=== PATIENT | female | born 1970 | race Caucasian/White ===

== ENCOUNTER 2023-09-22 06:53 | Inpatient (IN) | payer MEDICAID ==
[~2023-09-22] VITALS: Ht 172.7 cm; Wt 59.0 kg
[2023-09-22 07:27] LABS: BASOPHILS # (AUTO) 0.1 X10'3 (0-0.2); BASOPHILS % (AUTO) 1.5 % (0-1); EOSINOPHILS # (AUTO) 0.1 X10'3 (0-0.9); EOSINOPHILS % (AUTO) 3.6 % (0-6); HEMOGLOBIN 7.4 g/dl (12.0-16.0); LYMPHOCYTES # (AUTO) 1.3 X10'3 (1.1-4.8); LYMPHOCYTES % (AUTO) 31.8 % (21-51); MEAN CORPUSCULAR HEMOGLOBIN 24.2 PG (27.0-31.0); MEAN CORPUSCULAR HGB CONC 30.9 g/dL (33.0-36.5); MEAN CORPUSCULAR VOLUME 78.2 FL (78-98); MEAN PLATELET VOLUME 8.2 FL (7.4-10.4); MONOCYTES # (AUTO) 0.4 X10'3 (0-0.9); MONOCYTES % (AUTO) 9.4 % (2-12); NEUTROPHILS # (AUTO) 2.2 X10'3 (1.8-7.7); NEUTROPHILS % (AUTO) 53.7 % (42-75); PLATELET COUNT 253 X10'3 (140-440); RED BLOOD COUNT 3.06 X10'6 (4.20-5.60); RED CELL DISTRIBUTION WIDTH 19.9 % (11.5-14.5); WHITE BLOOD COUNT 4.1 X10'3 (4.5-11.0)
[2023-09-22 07:38] LABS: ALANINE AMINOTRANSFERASE 26 U/L (12-78); ALBUMIN 2.5 G/DL (3.4-5.0); ALBUMIN/GLOBULIN RATIO 0.5 (1.1-1.5); ALKALINE PHOSPHATASE 88 IU/L (46-116); ANION GAP 13 (8-16); ASPARTATE AMINO TRANSFERASE 66 U/L (10-37); BILIRUBIN,TOTAL 1.2 MG/DL (0.1-1.0); BLOOD UREA NITROGEN 6 MG/DL (7-18); BUN/CREATININE RATIO 7.9 (10.0-20.0); CALCIUM 7.7 MG/DL (8.5-10.1); CHLORIDE 106 MMOL/L (99-107); CREATININE 0.76 MG/DL (0.40-0.90); GLUCOSE 115 MG/DL (70-104); LIPASE 43 U/L (16-77); POTASSIUM 3.5 MMOL/L (3.5-5.1); SODIUM 143 MMOL/L (135-145); TOTAL CARBON DIOXIDE 23.6 MMOL/L (24-32); TOTAL PROTEIN 7.1 G/DL (6.4-8.2); eCRCL 81 ML/MIN; eGFR 80 ML/MIN
[2023-09-22 07:41] LABS: BILIRUBIN,URINE NEGATIVE (Neg); CLARITY,URINE SLIGHTLY CLOUDY (Clear); COLOR,URINE YELLOW (Yellow); GLUCOSE, URINE NEGATIVE (Neg); KETONES,URINE NEGATIVE (Neg); LEUKOCYTE ESTERASE ,URINE SMALL (Neg); NITRITES, URINE NEGATIVE (Neg); OCCULT BLOOD,URINE NEGATIVE (Neg); PH,URINE 6.5 (4.8-8.0); PROTEIN,URINE NEGATIVE (Neg); UROBILINOGEN,URINE 0.2 E.U/dL (0.2-1.0)
[2023-09-22 07:43] LABS: UA COLLECTION TYPE CLN CATCH MIDSTREAM
[2023-09-22 07:47] LABS: SQUAMOUS EPITHELIAL CELL,UR MANY /LPF (FEW)
[2023-09-22 07:49] LABS: BACTERIA,URINE 2+ /HPF (Neg); RBC,URINE 0-2 /HPF (0-2)
[2023-09-22 07:55] LABS: YEAST FEW /HPF (NEGATIVE)
[2023-09-22] MEDS ORDERED: NO HOME MEDS (08:21)
[2023-09-22 08:34] LABS: PLATELET ESTIMATE NORMAL
[2023-09-22 08:35] LABS: ANISOCYTOSIS 2+; HYPOCHROMASIA 1+; MICROCYTOSIS 1+
[2023-09-22] MEDS: CefTRIAXone/D5W-Rocephin 1gm 50 ML IV ONE (09:44)
[2023-09-22] MEDS: pantoprazole 40 MG vial IV SCH (11:05)
[2023-09-22 12:00] VITALS: BP 145/79; PULSE 119; RESP 16; TEMP 98.4; O2SAT 99
[2023-09-22 13:03] LABS: HEMATOCRIT 23.2 % (35.0-45.0); HEMOGLOBIN 7.1 g/dl (12.0-16.0); MEAN CORPUSCULAR HGB CONC 30.5 g/dL (33.0-36.5); MEAN CORPUSCULAR VOLUME 78.5 FL (78-98); MEAN PLATELET VOLUME 8.1 FL (7.4-10.4); PLATELET COUNT 225 X10'3 (140-440); RED BLOOD COUNT 2.96 X10'6 (4.20-5.60); RED CELL DISTRIBUTION WIDTH 19.7 % (11.5-14.5); WHITE BLOOD COUNT 3.7 X10'3 (4.5-11.0)
[2023-09-22] MEDS: hydrOXYzine 10 MG tablet PO PRN (14:01)
[2023-09-22] MEDS: octreotide inj. 500 MCG in normal saline 100ml IV soln 97.5 ML IV SCH (14:45)
[2023-09-22] MEDS: pantoprazole 40MG/NS 100ML BAG 100 ML IV SCH (14:55)
[2023-09-22 18:00] VITALS: BP 140/71; PULSE 111; RESP 14; TEMP 98.2; O2SAT 100
[2023-09-22 20:35] LABS: MAGNESIUM 1.1 MG/DL (1.5-2.4)
[2023-09-22 22:00] VITALS: BP 127/69; PULSE 114; RESP 16; TEMP 97.3; O2SAT 100
[2023-09-22] MEDS ORDERED: LORazepam 2 mg/ml vial IV PRN (22:40)
[2023-09-22] MEDS ORDERED: LORazepam 1 MG tablet PO PRN (22:40)
[2023-09-22] MEDS: normal saline 1000ml 1,000 ML IV SCH (22:53)
[2023-09-22 23:05] LABS: BASOPHILS % (AUTO) 0.7 % (0-1); EOSINOPHILS # (AUTO) 0.1 X10'3 (0-0.9); EOSINOPHILS % (AUTO) 1.3 % (0-6); LYMPHOCYTES # (AUTO) 0.2 X10'3 (1.1-4.8); LYMPHOCYTES % (AUTO) 3.9 % (21-51); MEAN CORPUSCULAR HEMOGLOBIN 23.6 PG (27.0-31.0); MEAN CORPUSCULAR HGB CONC 30.6 g/dL (33.0-36.5); MEAN CORPUSCULAR VOLUME 77.3 FL (78-98); MEAN PLATELET VOLUME 8.2 FL (7.4-10.4); MONOCYTES # (AUTO) 0.2 X10'3 (0-0.9); MONOCYTES % (AUTO) 5.5 % (2-12); NEUTROPHILS # (AUTO) 3.9 X10'3 (1.8-7.7); NEUTROPHILS % (AUTO) 88.6 % (42-75); PLATELET COUNT 177 X10'3 (140-440); RED BLOOD COUNT 2.72 X10'6 (4.20-5.60); RED CELL DISTRIBUTION WIDTH 19.8 % (11.5-14.5); WHITE BLOOD COUNT 4.4 X10'3 (4.5-11.0)
[2023-09-22 23:09] LABS: HEMATOCRIT 21.1 % (35.0-45.0); HEMOGLOBIN 6.4 g/dl (12.0-16.0)
[2023-09-23] VITALS (35 sets, daily range): BP systolic 84–145; BP diastolic 51–87; PULSE 90–149; RESP 15–21; TEMP 97.1–100.1; O2SAT 93–100
[2023-09-23 06:36] LABS: BASOPHILS % (AUTO) 0.9 % (0-1); HEMATOCRIT 27.4 % (35.0-45.0); HEMOGLOBIN 8.9 g/dl (12.0-16.0); LYMPHOCYTES # (AUTO) 0.1 X10'3 (1.1-4.8); LYMPHOCYTES % (AUTO) 3.2 % (21-51); MEAN CORPUSCULAR HEMOGLOBIN 25.1 PG (27.0-31.0); MEAN CORPUSCULAR HGB CONC 32.5 g/dL (33.0-36.5); MEAN PLATELET VOLUME 8.5 FL (7.4-10.4); MONOCYTES # (AUTO) 0.2 X10'3 (0-0.9); MONOCYTES % (AUTO) 4.6 % (2-12); NEUTROPHILS # (AUTO) 3.9 X10'3 (1.8-7.7); NEUTROPHILS % (AUTO) 90.3 % (42-75); PLATELET COUNT 161 X10'3 (140-440); RED BLOOD COUNT 3.56 X10'6 (4.20-5.60); RED CELL DISTRIBUTION WIDTH 18.5 % (11.5-14.5); WHITE BLOOD COUNT 4.3 X10'3 (4.5-11.0)
[2023-09-23 06:44] LABS: INR 1.4 INR; PROTHROMBIN TIME 14.5 SECONDS (9.0-12.0)
[2023-09-23 06:55] LABS: ALANINE AMINOTRANSFERASE 23 U/L (12-78); ALBUMIN 2.3 G/DL (3.4-5.0); ALBUMIN/GLOBULIN RATIO 0.5 (1.1-1.5); ALKALINE PHOSPHATASE 77 IU/L (46-116); AMYLASE 37 U/L (25-115); ANION GAP 11 (8-16); ASPARTATE AMINO TRANSFERASE 62 U/L (10-37); BILIRUBIN,TOTAL 2.5 MG/DL (0.1-1.0); BLOOD UREA NITROGEN 5 MG/DL (7-18); BUN/CREATININE RATIO 7.4 (10.0-20.0); CALCIUM 7.5 MG/DL (8.5-10.1); CHLORIDE 104 MMOL/L (99-107); CREATININE 0.68 MG/DL (0.40-0.90); GLUCOSE 131 MG/DL (70-104); LIPASE 30 U/L (16-77); PHOSPHORUS 3.1 MG/DL (2.3-4.5); POTASSIUM 3.4 MMOL/L (3.5-5.1); SODIUM 136 MMOL/L (135-145); TOTAL CARBON DIOXIDE 21.4 MMOL/L (24-32); TOTAL PROTEIN 6.8 G/DL (6.4-8.2); eCRCL 90 ML/MIN; eGFR > 90 ML/MIN
[2023-09-23] MEDS ORDERED: magnesium Cl slow-release 64mg tablet PO PRN (06:55)
[2023-09-23] MEDS ORDERED: potassium Cl 40MEQ/1/2NS 520ml 520 ML IV PRN (06:55)
[2023-09-23] MEDS ORDERED: potassium Cl 20 mEq SR tablet PO PRN (06:55)
[2023-09-23 07:01] LABS: MAGNESIUM 0.9 MG/DL (1.5-2.4)
[2023-09-23] MEDS: folic acid 1mg tablet PO SCH (07:34)
[2023-09-23] MEDS: potassium Cl 20 mEq SR tablet PO PRN (07:34)
[2023-09-23] MEDS: multivitamins, therapeutics tablet PO SCH (07:34)
[2023-09-23] MEDS: thiamine 100mg tablet PO SCH (07:34)
[2023-09-23] MEDS: magnesium sulf-water 4G/100mL 100 ML IV PRN (07:41)
[2023-09-23] MEDS: magnesium sulf-water 2g/50mL 50 ML IV PRN (07:42)
[2023-09-23] MEDS: K and/or MAG REPLACEMENT MC SCH (08:00)
[2023-09-23] MEDS: chloestyramine/aspartame 4gm packet PO SCH (11:00)
[2023-09-23] MEDS ORDERED: fentaNYL/PF 50MCG/1 ML 2ML syringe ONE (12:23)
[2023-09-23] MEDS ORDERED: LIDOcaine 2% Viscous 15ml cup ONE (12:24)
[2023-09-23] MEDS ORDERED: diphenhydrAMINE 50 mg/ml inj ONE ×2 (12:24→12:57)
[2023-09-23] MEDS ORDERED: MIDAZolam 1 MG/ML 5ML VIAL ONE (12:24)
[2023-09-23] MEDS ORDERED: epiNEPHrine 0.1mg/ml 10ml syringe ONE ×2 (12:40→13:02)
[2023-09-23 13:10] LABS: THYROID STIMULATING HORMONE 0.22 ulU/ml (0.34-4.50)
[2023-09-23] MEDS ORDERED: calcium gluconate inj. 2 GM in normal saline 100ml IV soln 100 ML IV ONE (13:30)
[2023-09-23] MEDS: octreotide inj. 500 MCG in normal saline 100ml IV soln 97.5 ML IV SCH (13:30)
[2023-09-23] MEDS: ringers solution, lacted 1,000 ML IV SCH (13:45)
[2023-09-23] MEDS: CALCIUM GLUC 1gm/50ml NACL,iso 50 ML IV ONE ×2 (15:01→15:30)
[2023-09-23] MEDS ORDERED: MULT-1085 PO (15:58)
[2023-09-23] MEDS ORDERED: morphine 2 MG/ML inj. syringe IV PRN (17:35)
[2023-09-23] MEDS: acetaminophen 1,000mg/100ml IV 100 ML IV PRN (17:38)
[2023-09-23 17:58] LABS: MEAN CORPUSCULAR HEMOGLOBIN 27.3 PG (27.0-31.0); PLATELET COUNT 138 X10'3 (140-440); RED CELL DISTRIBUTION WIDTH 18.1 % (11.5-14.5); WHITE BLOOD COUNT 11.7 X10'3 (4.5-11.0)
[2023-09-23 18:00] LABS: BASOPHILS % (AUTO) 0.3 % (0-1); EOSINOPHILS % (AUTO) 0.3 % (0-6); HEMATOCRIT 32.5 % (35.0-45.0); HEMOGLOBIN 10.9 g/dl (12.0-16.0); LYMPHOCYTES # (AUTO) 0.2 X10'3 (1.1-4.8); LYMPHOCYTES % (AUTO) 2.1 % (21-51); MEAN CORPUSCULAR HGB CONC 33.3 g/dL (33.0-36.5); MEAN CORPUSCULAR VOLUME 81.8 FL (78-98); MEAN PLATELET VOLUME 8.1 FL (7.4-10.4); MONOCYTES # (AUTO) 0.6 X10'3 (0-0.9); MONOCYTES % (AUTO) 5.4 % (2-12); NEUTROPHILS # (AUTO) 10.7 X10'3 (1.8-7.7); NEUTROPHILS % (AUTO) 91.9 % (42-75); RED BLOOD COUNT 3.98 X10'6 (4.20-5.60)
[2023-09-23 22:55] LABS: BASOPHILS # (AUTO) 0.1 X10'3 (0-0.2); BASOPHILS % (AUTO) 0.9 % (0-1); EOSINOPHILS # (AUTO) 0.1 X10'3 (0-0.9); EOSINOPHILS % (AUTO) 0.9 % (0-6); HEMATOCRIT 29.1 % (35.0-45.0); HEMOGLOBIN 9.8 g/dl (12.0-16.0); LYMPHOCYTES # (AUTO) 0.3 X10'3 (1.1-4.8); LYMPHOCYTES % (AUTO) 3.6 % (21-51); MEAN CORPUSCULAR HEMOGLOBIN 27.3 PG (27.0-31.0); MEAN CORPUSCULAR HGB CONC 33.5 g/dL (33.0-36.5); MEAN CORPUSCULAR VOLUME 81.6 FL (78-98); MONOCYTES # (AUTO) 0.4 X10'3 (0-0.9); MONOCYTES % (AUTO) 5.4 % (2-12); NEUTROPHILS % (AUTO) 89.2 % (42-75); PLATELET COUNT 135 X10'3 (140-440); RED BLOOD COUNT 3.57 X10'6 (4.20-5.60); RED CELL DISTRIBUTION WIDTH 17.7 % (11.5-14.5); WHITE BLOOD COUNT 7.8 X10'3 (4.5-11.0)
[2023-09-23 23:07] LABS: ALANINE AMINOTRANSFERASE 18 U/L (12-78); ALBUMIN/GLOBULIN RATIO 0.6 (1.1-1.5); ALKALINE PHOSPHATASE 59 IU/L (46-116); ANION GAP 7 (8-16); ASPARTATE AMINO TRANSFERASE 39 U/L (10-37); BILIRUBIN,TOTAL 4.1 MG/DL (0.1-1.0); BLOOD UREA NITROGEN 8 MG/DL (7-18); BUN/CREATININE RATIO 12.3 (10.0-20.0); CALCIUM 7.7 MG/DL (8.5-10.1); CHLORIDE 107 MMOL/L (99-107); CREATININE 0.65 MG/DL (0.40-0.90); GLUCOSE 104 MG/DL (70-104); MAGNESIUM 1.9 MG/DL (1.5-2.4); PHOSPHORUS 2.9 MG/DL (2.3-4.5); POTASSIUM 3.5 MMOL/L (3.5-5.1); SODIUM 138 MMOL/L (135-145); TOTAL CARBON DIOXIDE 23.8 MMOL/L (24-32); TOTAL PROTEIN 5.5 G/DL (6.4-8.2); eCRCL 94 ML/MIN; eGFR > 90 ML/MIN
[2023-09-24] VITALS: BP 154/82; PULSE 89; RESP 12; O2SAT 95
[2023-09-24 01:00] VITALS: BP 120/74; PULSE 88; RESP 15; O2SAT 94
[2023-09-24 02:00] VITALS: BP 142/79; PULSE 83; RESP 13; O2SAT 96
[2023-09-25 18:13] LABS: ANTINUCLEAR ANTIBODIES Negative (Negative)
[2023-09-26 06:56] LABS: HBSAG SCREEN Negative (Negative); HEP B CORE AB, IGM Negative (Negative); HEP B CORE AB, TOT Negative (Negative)
[2023-09-26] MEDS ORDERED: thiamine 100mg tablet PO SCH (08:00)
[2023-09-26] MEDS ORDERED: PANT-47 PO (08:29)
[2023-09-26 12:23] LABS: MITOCHONDRAIL (M2) ANTIBODY <20.0 Units (0.0-20.0)
[2023-09-27] MEDS ORDERED: folic acid 1mg tablet PO SCH (08:00)
== END 2023-09-24 02:20 | disposition critical access hospital (66) | DRG 241 ==
LOC: ER 06:55 → ED HOLD 10:02 → UNDOADMIN 10:17 → ED HOLD 10:17 → EDBEDREQ 10:50 → ED HOLD 11:45 → ORTHO 4S 11:45 → ICU 2S 09-23 13:53
PROVIDERS: ADMIT Internal Medicine; ATTEND Internal Medicine
PROC: 0W3P8ZZ Control Bleeding in Gastrointestinal Tract, Via Natural or Artificial Opening Endoscopic (ICD-10-PCS; principal; 2023-09-23)
PROC: 3E0G8GC Introduction of Other Therapeutic Substance into Upper GI, Via Natural or Artificial Opening Endoscopic (ICD-10-PCS; 2023-09-23)
PROC: 30233K1 Transfusion of Nonautologous Frozen Plasma into Peripheral Vein, Percutaneous Approach (ICD-10-PCS; 2023-09-23)
PROC: 30233N1 Transfusion of Nonautologous Red Blood Cells into Peripheral Vein, Percutaneous Approach (ICD-10-PCS; 2023-09-23)
PROC: 30233R1 Transfusion of Nonautologous Platelets into Peripheral Vein, Percutaneous Approach (ICD-10-PCS; 2023-09-23)
PROC: 30233M1 Transfusion of Nonautologous Plasma Cryoprecipitate into Peripheral Vein, Percutaneous Approach (ICD-10-PCS; 2023-09-23)
DX: K29.71 Gastritis, unspecified, with bleeding (principal); K70.10 Alcoholic hepatitis without ascites; K76.0 Fatty (change of) liver, not elsewhere classified; F10.20 Alcohol dependence, uncomplicated; D50.8 Other iron deficiency anemias; E87.6 Hypokalemia; G62.9 Polyneuropathy, unspecified; Z20.822 Contact with and (suspected) exposure to COVID-19; L29.8 Other pruritus; N39.0 Urinary tract infection, site not specified; Z88.8 Allergy status to other drugs, medicaments and biological substances
CPT/HCPCS: 36415; 36430; 43255; 76700; 80053; 81001; 82150; 83690; 83735; 84100; 84443; 85008; 85025; 85027; 85610; 86038; 86255; 86704; 86705; 86885; 86900; 86901; 86920; 87081; 87340; 87811; 99152; 99153; 99285; A4620; C1758; G0378; J0131; J0171; J0610; J0696; J1200; J2250; J2354; J3010; J3475; J7030; J7040; J7120; P9012; P9016; P9035; P9059

== ENCOUNTER 2024-08-02 22:55 | Inpatient (IN) | payer MEDICAID ==
[~2024-08-02] VITALS: Ht 172.7 cm; Wt 57.5 kg
[~2024-08-02 22:55] MED LIST: MULT-1085 PO; PANT-47 PO
--- NOTE | 2024-08-02 23:08 | Physician Documentation ---
History of Present Illness ~ Chief Complaint: See Chief Complaint Stated Complaint: GI BLEED Time Seen by MD: 22:57 HPI Patient presents to the emergency room for evaluation of GI bleed. She is transferred from [facility]. Patient has history of cirrhosis along with variceal bleeds with banding two weeks ago that also paracentesis performed earlier this morning. She endorses black stools and hematemesis. She was transfused 2 units of packed red blood cells he will receive crystalloid fluids at sending facility. Protonix was also initiated along with octreotide. Patient was initially hypotensive however she is respond to therapy in his now normotensive. Medication Reconciliation Allergies: Coded Allergies: gabapentin (Verified Allergy, Unknown, 09/22/23) Scheduled Calcium Carbonate* (Oscal*), 1 TAB PO BID, (Reported) Folic Acid* (Folic Acid*), 2.5 TAB PO DAILY, (Reported) Levothyroxine Sodium (Synthroid), 1 TAB PO DAILY, (Reported) Pantoprazole Sodium (PROTONIX tablet), 40 MG PO BID Sertraline HCl (Sertraline HCl), 1 TAB PO DAILY, (Reported) Scheduled PRN Docusate Sodium (Docusate Sodium), 1 CAP PO Q12H PRN for constipation, (Reported) Oxycodone Hcl IR* (Oxycodone IR*), 1 TAB PO Q6H PRN for moderate to severe pain, (Reported) Sennosides (Senna), 2 TAB PO HS PRN for constipation, (Reported) Discontinued Medications Multivitamin (Multi Vitamin Daily), 1 TAB PO DAILY, (Reported) Discontinued Reason: patient no longer taking Past Medical History Patient History: Cirrhosis of liver MOTHER, , Age: 72 GRANDFATHER OR GRANDMOTHER Diabetes mellitus (DM) MOTHER, , Age: 72 FH: OR (myocardial infarction) MOTHER, , Age: 72 FH: alcoholism GRANDFATHER OR GRANDMOTHER Alcohol Use: Abuse Drug Use: none Lives with: Spouse Lives In: Home Review of Systems ROS All review of systems negative except as per HPI Physical Exam Vital Signs: Temperature: 98.3, Source: Oral, Heart Rate: 110, Respiratory Rate: 18, BP: 112/61, Pulse Oximetry: 97, Weight: 57.550 Oxygen Flow Rate: 0 Physical Exam General: Patient is awake, alert, oriented x4 in no acute distress Head: Normocephalic and atraumatic. Eyes: Conjunctival normal. EOMI. PERRL. ENT: Mucous membranes moist. Neck: Supple, trachea is midline. Chest: Clear to auscultation bilaterally without rales, rhonchi, or wheezes. There is no accessory muscle use or retractions. Cardiac: Tachycardic and regular without murmurs, gallops, or rubs. Abd: Soft, nondistended, mild epigastric tenderness to palpation Extremities: Normal strength. Normal range of motion. No deformities or edema. Left wrist and splint Progress Results/Orders Results/Orders Orders - SANCHEZ ZAMUDIO MD Electrocardiogram (08/02/24 23:03) Nothing By Mouth (08/03/24 Breakfast) Monitor (08/02/24 23:03) Saline Lock (08/02/24 23:03) Iv Ppi (08/02/24 23:03) Pantoprazole 40mg/Ns 100ml Bag (Protonix (08/02/24 23:10) Page Hospitalist (08/02/24 23:36) Fill Out Med Reconciliation (08/02/24 23:36) Completed Orders - SANCHEZ ZAMUDIO MD Cbc/Diff (08/02/24 23:03) BMP (08/02/24 23:03) PTT (08/02/24 23:03) Pt Inr (08/02/24 23:03) Type And Screen (08/02/24 23:03) Normal Saline 100ml... W/Octreotide Inj. (08/02/24 23:05) Octreotide Inj. (Sandostatin Inj.) (08/02/24 23:50) Pantoprazole 40mg/Ns 100ml Bag (Protonix (08/02/24 23:55) Medications Received in ER Medications (Trade) Dose Ordered Sig/Mae Route PRN Reason Start Time Stop Time Status Last Admin Dose Admin Octreotide Acetate 500 mcg/ Sodium Chloride 100 ml @ 10 mls/hr Q10H IV 08/02/24 23:05 08/03/24 00:34 DC 08/03/24 00:26 10 MLS/HR Pantoprazole Sodium 100 ml @ 20 mls/hr Q5H IV 08/02/24 23:10 08/03/24 00:26 20 MLS/HR Sodium Chloride 1,000 ml @ 100 mls/hr Q10H IV 08/03/24 00:30 08/03/24 00:30 100 MLS/HR (Slow-Mag tablet) 128 mg BID PRN PO Mag 1.4 or less & can take PO 08/03/24 00:30 08/06/24 00:29 08/03/24 02:12 128 MG Vital Signs 08/02/24 08/02/24 08/02/24 22:56 23:02 23:04 Temp 98.3 98.3 Pulse 112 110 Resp 18 18 18 B/P (MAP) 112/61 112/61 (78) Pulse Ox 100 97 O2 Flow Rate 0 0 Laboratory Tests Test 08/02/24 23:18 White Blood Count 10.4 Red Blood Count 2.89 L Hemoglobin 8.7 L Hematocrit 25.7 L Mean Corpuscular Volume 88.9 Mean Corpuscular Hemoglobin 30.2 Mean Corpuscular Hemoglobin Concent 33.9 Red Cell Distribution Width 14.8 H Platelet Count 265 Mean Platelet Volume 9.0 Neutrophils (%) (Auto) 75.0 Lymphocytes (%) (Auto) 12.4 L Monocytes (%) (Auto) 11.6 Eosinophils (%) (Auto) 0.1 Basophils (%) (Auto) 0.9 Neutrophils # (Auto) 7.8 H Lymphocytes # (Auto) 1.3 Monocytes # (Auto) 1.2 H Eosinophils # (Auto) 0.0 Basophils # (Auto) 0.1 CBC Comment Prothrombin Time 14.6 H INR International Normalized Ratio 1.5 Activated Partial Thromboplast Time 29 Coagulation Comments Sodium Level 134 L Potassium Level 4.2 Chloride Level 96 L Carbon Dioxide Level 28.6 Anion Gap 9 Blood Urea Nitrogen 44 H Creatinine 1.07 H Estimated GFR/1.73 m2 54 BUN/Creatinine Ratio 41.1 H Glucose Level 114 H Calcium Level 8.3 L Albumin 2.6 L Chemistry Comments EKG/XRAY/CT/US/VASC/MRI EKG : Additional Comment EKG interpreted by myself shows time of 05/12/2057, rate 107, sinus tachycardia, normal axis, no ST changes Medical Decision Making Findings Patient presents to the emergency room with GI bleed as per HPI as a transfer from [facility] We will continue octreotide along with Protonix drip. No active bleeding in our emergency room. Patient did require transfusion. Diff Dx GI Bleed:Consideration: Include: Bleeding diathesis, Blood loss anemia, Gastroenteritis, Pennie-Jennings syndrome, PUD Departure Admitted to Inpatient Unit: yes, to hospitalist Impression: Primary Impression: Upper GI bleed Condition: Guarded Referrals: NO PRIMARY CARE PROVIDER (PCP) Critical Care Note Total Time (mins): 45 Critical Care Note The very real possibility of a deterioration of this patient's condition required the highest level of my preparedness for sudden, emergent intervention. I provided critical care services, which included medication orders, frequent reevaluations of the patient's condition and response to treatment, ordering and reviewing test results, and discussing the case with various consultants. Excludes time spent performing separately billable procedures. The critical care time associated with the care of the patient was 45 minutes not counting procedures Signature Scribe Signature: No scribe Attestation: The note accurately reflects work and decisions made by me.Sanchez Zamudio MD 08/03/24 02:37 SANCHEZ ZAMUDIO MD August 02, 2024 23:08
[2024-08-02 23:27] LABS: BASOPHILS # (AUTO) 0.1 X10'3 (0-0.2); EOSINOPHILS % (AUTO) 0.1 % (0-6); HEMOGLOBIN 8.7 g/dl (12.0-16.0); LYMPHOCYTES # (AUTO) 1.3 X10'3 (1.1-4.8); LYMPHOCYTES % (AUTO) 12.4 % (21-51)
[2024-08-02 23:28] LABS: BASOPHILS % (AUTO) 0.9 % (0-1); HEMATOCRIT 25.7 % (35.0-45.0); MEAN CORPUSCULAR HEMOGLOBIN 30.2 PG (27.0-31.0); MEAN CORPUSCULAR HGB CONC 33.9 g/dL (33.0-36.5); MEAN CORPUSCULAR VOLUME 88.9 FL (78-98); MONOCYTES # (AUTO) 1.2 X10'3 (0-0.9); MONOCYTES % (AUTO) 11.6 % (2-12); NEUTROPHILS # (AUTO) 7.8 X10'3 (1.8-7.7); PLATELET COUNT 265 X10'3 (140-440); RED BLOOD COUNT 2.89 X10'6 (4.20-5.60); RED CELL DISTRIBUTION WIDTH 14.8 % (11.5-14.5); WHITE BLOOD COUNT 10.4 X10'3 (4.5-11.0)
[2024-08-02 23:36] LABS: ALBUMIN 2.6 G/DL (3.4-5.0); ANION GAP 9 (8-16); BLOOD UREA NITROGEN 44 MG/DL (7-18); BUN/CREATININE RATIO 41.1 (10.0-20.0); CALCIUM 8.3 MG/DL (8.5-10.1); CHLORIDE 96 MMOL/L (99-107); CREATININE 1.07 MG/DL (0.40-0.90); GLUCOSE 114 MG/DL (70-104); POTASSIUM 4.2 MMOL/L (3.5-5.1); SODIUM 134 MMOL/L (135-145); TOTAL CARBON DIOXIDE 28.6 MMOL/L (24-32); eCRCL 55 ML/MIN; eGFR 54 ML/MIN
[2024-08-02 23:39] LABS: APTT 29 SECONDS (22-32); INR 1.5 INR; PROTHROMBIN TIME 14.6 SECONDS (9.0-12.0)
[2024-08-03] VITALS (8 sets, daily range): BP systolic 109–122; BP diastolic 47–58; PULSE 98–116; RESP 14–18; TEMP 97.1–97.8; O2SAT 95–100
[2024-08-03] MEDS: octreotide 200mcg/ml 5ml vial ONE (00:25)
[2024-08-03] MEDS: pantoprazole 40MG/NS 100ML BAG 100 ML IV ONE ×2 (00:25→05:19)
[2024-08-03] MEDS: pantoprazole 40MG/NS 100ML BAG 100 ML IV SCH (00:26)
[2024-08-03] MEDS: octreotide inj. 500 MCG in normal saline 100ml IV soln 97.5 ML IV SCH ×2 (00:26→01:19)
[2024-08-03] MEDS: normal saline 1000ml 1,000 ML IV SCH (00:30)
[2024-08-03] MEDS ORDERED: potassium Cl 20 mEq SR tablet PO PRN (00:30)
[2024-08-03] MEDS ORDERED: ondansetron/PF 4mg/2ml inj IV PRN (00:30)
[2024-08-03] MEDS ORDERED: magnesium sulf-water 2g/50mL 50 ML IV PRN (00:30)
[2024-08-03] MEDS ORDERED: magnesium sulf-water 4G/100mL 100 ML IV PRN (00:30)
[2024-08-03] MEDS ORDERED: potassium Cl 40MEQ/1/2NS 520ml 520 ML IV PRN (00:30)
--- NOTE | 2024-08-03 01:23 | HISTORY AND PHYSICAL-Residence ---
History & Physical Providers to CC Resident Creating Document: MEÑO BELTRAN RES ~ History of Present Illness Reason for Admit\Complaint: Upper GI bleed History of Present Illness This 54-year-old female with a known liver cirrhosis, s/p esophageal variceal banding about two weeks back, previous upper GI bleed was transferred from [facility] for higher level of care for the management of upper GI bleed. She stated that she was completely fine till yesterday. Got a paracentesis done at [facility] this morning and she gets one paracentesis done every 10 days. She usually walks by herself but sometimes needs wheelchair or walker due to weakness in her knees. She started throwing up blood this morning and then was about to stand up from the wheelchair. [place] dizzy and fell to the ground. States that she lost consciousness and that her called the EMS. She was taken to [facility], had hemoglobin of 5.2 and received 2 unit packed RBC and also crystalloid fluids. Per ER note, she also received Protonix drip and octreotide drip. A discharge summary or H&P is not available -recommend to requested records from [facility]. She also was admitted in September last year for similar complaints due to massive bleed from a visible vessel at the lesser curvature of the stomach requiring clipping and epinephrine injection. Had drop in blood pressure and was transferred to ICU to resume multiple blood products. She also was diagnosed to have a peptic ulcer disease at the GE junction. She was also transferred to [facility] where a CT with and without oral contrast was performed and no other procedures were done. She denies drinking alcohol recently and that she quit in Mar this year. States that she took aspirin 81 mg once about three days back for left wrist pain. Denies taking any Tylenol, NSAIDs. States that she developed left upper arm wound from fall this morning and left lower extremity wound from fall at [facility] about 1-2 weeks back. Allergies: Coded Allergies: gabapentin (Verified Allergy, Unknown, 09/22/23) Home Medications Home Medications Active PROTONIX tablet (Pantoprazole Sodium) 40 Mg Tablet.dr 40 Mg PO BID Reported Multi Vitamin Daily (Multivitamin) 1 Each Tablet 1 Tab PO DAILY 30 Days Past Medical History Past Medical History Liver cirrhosis, alcohol use disorder, esophageal varices-s/p banding Past Surgical History Surgical History Comment Foot surgery many years back, esophageal variceal banding, paracentesis Family History Family History: Cirrhosis of liver MOTHER, , Age: 72 GRANDFATHER OR GRANDMOTHER Diabetes mellitus (DM) MOTHER, , Age: 72 FH: [place] (myocardial infarction) MOTHER, , Age: 72 FH: alcoholism GRANDFATHER OR GRANDMOTHER Past Social History Social History Comment States that she quit drinking in Mar this year but drank ' a lot' before that. Denies smoking tobacco or abusing any other recreational drugs Smoking: Non-Smoker Alcohol Use: Abuse Drug Use: None Lives with: Spouse Lives In: Home ROS ROS Constitutional: No fever, chills, dizziness, weakness, weight gain or loss Eyes: No pain, erythema, discharge, blurring of vision ENT: No sore throat, epistaxis, tinnitus Cardiovascular: No chest pain, chest pressure, chest discomfort, palpitations, syncope, lower extremity edema, paroxysmal nocturnal dyspnea Respiratory: No shortness of breath, cough, hemoptysis Gastrointestinal: Hematemesis and black tarry stools present. Normal appetite. Genitourinary: No frequency, urgency, nocturia, hematuria or dysuria Musculoskeletal: No arthralgias or myalgias Integumentary: No change in skin, hair, nails. No swelling, bruising, abrasions Neurologic: No headache, neck pain, numbness or tingling of the extremities, weakness Psychiatric: No delusions, depression, loss of interest in normal activity or change in sleep pattern, hallucinations, suicidal ideations Endocrine: No fatigue, weakness, polydipsia, polyuria, change in appetite, heat or cold intolerance, sweating, dry skin Hematological: No bleeding, petechiae, bruising Allergies: No asthma or urticaria Exam Vitals: Vital Signs Date Time Temp Pulse Resp B/P (MAP) Pulse Ox O2 Delivery O2 Flow Rate FiO2 08/02/24 23:04 18 08/02/24 23:02 98.3 110 97 0 General: Alert and oriented x4 HEENT: Normocephalic and atraumatic. Pupils equal round reactive to light and accommodation. Extraocular movements intact. Oral and nasal mucosa moist Neck: Trachea is in midline. No masses or JVD Chest: Bilateral normal breath sounds. No crackles, rhonchi or wheezes Cardiovascular: Regular rate and rhythm. S1-S2 normal. No rubs or murmurs Abdomen: Soft, mildly distended and nontender. Normoactive bowel sounds Extremities: No cyanosis, clubbing or edema. Superficial ulcer on left arm - about 5 cm - no subcutaneous tissue exposure. Superficial ulcer on left leg about 10 cm long. Excoriations on right leg Central Nervous System: Bilateral lower extremity motor power 4/5. Bilateral upper extremity below power 5/5. No significant sensory abnormalities. CN II to XII intact Skin: Superficial ulcer on left arm - about 5 cm - no subcutaneous tissue exposure. Superficial ulcer on left leg about 10 cm long. Excoriations on right leg Diagnostic Data Last Recorded Lab Results: 08/02/24 2318 08/03/24 0128 Diagnostic Data: Laboratory Tests Test 08/02/24 23:18 Prothrombin Time 14.6 SECONDS (9.0-12.0) H INR International Normalized Ratio 1.5 INR Activated Partial Thromboplast Time 29 SECONDS (22-32) Coagulation Comments Advance Care Planning Advanced Care plannin - 30 Minutes Additional Plan Upper GI bleed - tachycardic Possibly from esophageal varices or peptic ulcer disease Did not come with a Protonix drip and octreotide drip but received it the outside hospital Had one episode of bloody vomitus before transfer Started on Protonix drip and octreotide drip Started Rocephin 2 g IV daily Started normal saline at 100 cc/hour Took aspirin about three days back Per previous EGDs, peptic ulcerative gastroesophageal junction S/p variceal banding about two weeks back Recommend GI consult in a.m. HGB 8.7 and hematocrit 25.7. Check H&H q.4h Elevated INR secondary to liver cirrhosis Elevated BUN likely due to GI bleed Abdomen/pelvis CT with contrast done at outside hospital: No active GI bleeding identified. Cirrhosis with splenomegaly and small to moderate ascites Hyponatremia and hypochloremia Likely due to blood loss from hematemesis Continue IV fluids Decompensated Liver cirrhosis Paracentesis done on 08/02/2024 [facility] Hold Lasix or spironolactone for now due to ongoing GI bleed Check ammonia level Elevated INR, elevated bilirubin, hypoalbuminemia Abdomen/pelvis CT with contrast done at outside hospital: No active GI bleeding identified. Cirrhosis with splenomegaly and small to moderate ascites Dizziness and fall Likely due to blood loss from hematemesis Head CT did not show any acute intracranial abnormalities Corrected calcium with albumin: Within normal limits Superficial ulcerative wounds on left upper extremity and lower extremity Secondary to trauma Requires wound care. Wound care consult requested DVT prophylaxis: SCDs GI prophylaxis: Protonix drip. NPO after midnight Meño Beltran MD Internal Medicine Resident, PGY 2 Date of Service: August 03, 2024 Billing Provider: BRIANNA COMER MD Addendum agree with assessment and plan spent 35 minutes MEÑO BELTRAN RES August 03, 2024 01:23 BRIANNA COMER MD August 03, 2024 03:21
[2024-08-03 01:24] LABS: BILIRUBIN,URINE NEGATIVE (Neg); CLARITY,URINE CLEAR (Clear); COLOR,URINE YELLOW (Yellow); GLUCOSE, URINE NEGATIVE (Neg); KETONES,URINE TRACE mg/dl (Neg); LEUKOCYTE ESTERASE ,URINE NEGATIVE (Neg); NITRITES, URINE NEGATIVE (Neg); OCCULT BLOOD,URINE TRACE-INTACT (Neg); PH,URINE 5.5 (4.8-8.0); PROTEIN,URINE NEGATIVE (Neg); UROBILINOGEN,URINE 0.2 E.U/dL (0.2-1.0)
[2024-08-03 01:25] LABS: UA COLLECTION TYPE CLN CATCH MIDSTREAM
[2024-08-03] MEDS ORDERED: SERT-153 PO (01:25)
[2024-08-03] MEDS ORDERED: OXYC-658 PO (01:25)
[2024-08-03] MEDS ORDERED: DOCU100C38 PO (01:25)
[2024-08-03] MEDS ORDERED: OSC500T PO (01:25)
[2024-08-03] MEDS ORDERED: FOLI0.4T6 PO (01:25)
[2024-08-03] MEDS ORDERED: SENN-360 PO (01:25)
[2024-08-03] MEDS ORDERED: LEVO100T PO (01:25)
[2024-08-03 01:32] LABS: BACTERIA,URINE 1+ /HPF (Neg); SQUAMOUS EPITHELIAL CELL,UR FEW /LPF (FEW); WBC,URINE 0-4 /HPF (0-4)
--- NOTE | 2024-08-03 01:42 | RADIOLOGY REPORT ---
Clinical History fall and loss of consciousness, elevated INR Comparison None Technique: All CT scans at this medical facility are performed using dose modulation techniques as appropriate t o a performed exam including the following: Automated exposure control was utilized; adjustment of th e mA and/or kV according to patient size; and use of iterative reconstruction technique. All CT studies are reported to the Dose Index Registry of the [employer]. Without Contrast Radiation Dose: CTDI (mGy): 52.02; DLP (mGy-cm): 929.79 MANINDER CAMERON, [id number] Findings: No focal parenchymal lesion.No mass-effect. No shift of midline structures. The ventricular system a nd extracerebral CSF spaces are unremarkable for patient's age. No acute orbital abnormality. The imaged part of the paranasal sinuses is unremarkable.The imaged par t of the mastoid air cells is unremarkable. The calvarium is unremarkable. The soft tissues are unremarkable. Impression: No evidence of acute intracranial abnormality. This report was electronically signed by Gayathri Bravo MD on 08/03/2024 1:38:59 AM.
[2024-08-03 01:43] LABS: HEMOGLOBIN A1C 5.3 % (4.5-6.2)
[2024-08-03 01:47] LABS: ALANINE AMINOTRANSFERASE 20 U/L (12-78); ALBUMIN 2.6 G/DL (3.4-5.0); ALKALINE PHOSPHATASE 49 IU/L (46-116); ANION GAP 8 (8-16); ASPARTATE AMINO TRANSFERASE 29 U/L (10-37); BILIRUBIN,TOTAL 1.7 MG/DL (0.1-1.0); BLOOD UREA NITROGEN 47 MG/DL (7-18); BUN/CREATININE RATIO 43.5 (10.0-20.0); CALCIUM 8.3 MG/DL (8.5-10.1); CHLORIDE 96 MMOL/L (99-107); CREATININE 1.08 MG/DL (0.40-0.90); GLUCOSE 120 MG/DL (70-104); MAGNESIUM 1.3 MG/DL (1.5-2.4); PHOSPHORUS 4.3 MG/DL (2.3-4.5); POTASSIUM 3.7 MMOL/L (3.5-5.1); SODIUM 134 MMOL/L (135-145); TOTAL CARBON DIOXIDE 29.6 MMOL/L (24-32); TOTAL PROTEIN 5.1 G/DL (6.4-8.2); eCRCL 55 ML/MIN; eGFR 53 ML/MIN
[2024-08-03] MEDS: CefTRIAXone 2gm/D5W 50ml BAG 50 ML IV SCH (01:49)
[2024-08-03] MEDS: magnesium Cl slow-release 64mg tablet PO PRN (02:12)
--- NOTE | 2024-08-03 05:27 | ELECTROCARDIOGRAPH REPORT ---
[facility] Test Date: 2024-08-02 Test Time: 22:58:23 Pat Name: MANINDER CAMERON Department: EMERGENCY ROOM Room: [place] [address] Gender: F Filler Operator: GABRIELA : 1970 Requested By: SELENE SAENZ Order Number: [id number] Reading MD: Measurements Intervals [place] Rate: 107 P: 75 VT: 177 QRS: 66 QRSD: 79 T: 40 QT: 384 QTc: 513 Interpretive Statements Sinus tachycardia Low voltage, extremity leads Probable anteroseptal infarct, old Prolonged QT interval Please click the below link to view image of tracing.
[2024-08-03 07:09] LABS: BASOPHILS # (AUTO) 0.1 X10'3 (0-0.2); BASOPHILS % (AUTO) 0.9 % (0-1); EOSINOPHILS # (AUTO) 0.1 X10'3 (0-0.9); EOSINOPHILS % (AUTO) 0.4 % (0-6); HEMATOCRIT 25.4 % (35.0-45.0); HEMOGLOBIN 8.6 g/dl (12.0-16.0); LYMPHOCYTES % (AUTO) 12.7 % (21-51); MEAN CORPUSCULAR HEMOGLOBIN 30.1 PG (27.0-31.0); MEAN CORPUSCULAR HGB CONC 33.8 g/dL (33.0-36.5); MEAN CORPUSCULAR VOLUME 89.1 FL (78-98); MONOCYTES # (AUTO) 1.8 X10'3 (0-0.9); MONOCYTES % (AUTO) 11.3 % (2-12); NEUTROPHILS % (AUTO) 74.7 % (42-75); PLATELET COUNT 256 X10'3 (140-440); RED BLOOD COUNT 2.86 X10'6 (4.20-5.60); WHITE BLOOD COUNT 16.1 X10'3 (4.5-11.0)
[2024-08-03 07:28] LABS: ALANINE AMINOTRANSFERASE 14 U/L (12-78); ALBUMIN 2.3 G/DL (3.4-5.0); ALBUMIN/GLOBULIN RATIO 0.9 (1.1-1.5); ALKALINE PHOSPHATASE 43 IU/L (46-116); ANION GAP 10 (8-16); ASPARTATE AMINO TRANSFERASE 32 U/L (10-37); BILIRUBIN,TOTAL 1.2 MG/DL (0.1-1.0); BLOOD UREA NITROGEN 45 MG/DL (7-18); BUN/CREATININE RATIO 41.3 (10.0-20.0); CALCIUM 8.2 MG/DL (8.5-10.1); CHLORIDE 100 MMOL/L (99-107); CREATININE 1.09 MG/DL (0.40-0.90); GLUCOSE 117 MG/DL (70-104); MAGNESIUM 1.5 MG/DL (1.5-2.4); POTASSIUM 3.3 MMOL/L (3.5-5.1); SODIUM 136 MMOL/L (135-145); TOTAL CARBON DIOXIDE 26.3 MMOL/L (24-32); TOTAL PROTEIN 4.9 G/DL (6.4-8.2); eCRCL 54 ML/MIN; eGFR 53 ML/MIN
[2024-08-03] MEDS: morphine 2 MG/ML inj. syringe IV PRN ×2 (07:39→11:51)
[2024-08-03] MEDS: K and/or MAG REPLACEMENT MC SCH (08:00)
[2024-08-03 11:35] LABS: HEMATOCRIT 25.4 % (35.0-45.0); HEMOGLOBIN 8.6 g/dl (12.0-16.0); MEAN CORPUSCULAR HEMOGLOBIN 30.5 PG (27.0-31.0); MEAN CORPUSCULAR HGB CONC 33.9 g/dL (33.0-36.5); MEAN PLATELET VOLUME 8.7 FL (7.4-10.4); PLATELET COUNT 262 X10'3 (140-440); RED BLOOD COUNT 2.82 X10'6 (4.20-5.60); RED CELL DISTRIBUTION WIDTH 15.1 % (11.5-14.5); WHITE BLOOD COUNT 14.4 X10'3 (4.5-11.0)
[2024-08-03] MEDS: potassium Cl 20 mEq SR tablet PO PRN (11:52)
[2024-08-03] MEDS: HYDROmorphone inj. 0.5 MG/0.5 ML DISP.SYRIN IV PRN (13:32)
[2024-08-03 17:26] LABS: HEMATOCRIT 24.5 % (35.0-45.0); HEMOGLOBIN 8.4 g/dl (12.0-16.0); MEAN CORPUSCULAR HEMOGLOBIN 30.3 PG (27.0-31.0); MEAN CORPUSCULAR HGB CONC 34.3 g/dL (33.0-36.5); MEAN CORPUSCULAR VOLUME 88.5 FL (78-98); MEAN PLATELET VOLUME 8.7 FL (7.4-10.4); PLATELET COUNT 288 X10'3 (140-440); RED BLOOD COUNT 2.77 X10'6 (4.20-5.60); RED CELL DISTRIBUTION WIDTH 15.6 % (11.5-14.5); WHITE BLOOD COUNT 13.6 X10'3 (4.5-11.0)
[2024-08-03 19:49] LABS: HEMATOCRIT 24.3 % (35.0-45.0); HEMOGLOBIN 8.4 g/dl (12.0-16.0); MEAN CORPUSCULAR HEMOGLOBIN 30.5 PG (27.0-31.0); MEAN CORPUSCULAR HGB CONC 34.6 g/dL (33.0-36.5); MEAN CORPUSCULAR VOLUME 88.1 FL (78-98); MEAN PLATELET VOLUME 8.1 FL (7.4-10.4); PLATELET COUNT 263 X10'3 (140-440); RED BLOOD COUNT 2.76 X10'6 (4.20-5.60); RED CELL DISTRIBUTION WIDTH 15.1 % (11.5-14.5); WHITE BLOOD COUNT 10.5 X10'3 (4.5-11.0)
[2024-08-03 23:13] LABS: HEMATOCRIT 23.3 % (35.0-45.0); HEMOGLOBIN 8.1 g/dl (12.0-16.0); MEAN CORPUSCULAR HEMOGLOBIN 30.5 PG (27.0-31.0); MEAN CORPUSCULAR HGB CONC 34.6 g/dL (33.0-36.5); MEAN CORPUSCULAR VOLUME 88.1 FL (78-98); MEAN PLATELET VOLUME 8.2 FL (7.4-10.4); PLATELET COUNT 250 X10'3 (140-440); RED BLOOD COUNT 2.65 X10'6 (4.20-5.60); WHITE BLOOD COUNT 9.3 X10'3 (4.5-11.0)
[2024-08-04] VITALS (16 sets, daily range): BP systolic 90–133; BP diastolic 31–80; PULSE 98–116; RESP 12–21; TEMP 97.1–98.2; O2SAT 95–100
[2024-08-04 03:25] LABS: HEMATOCRIT 22.8 % (35.0-45.0); HEMOGLOBIN 7.8 g/dl (12.0-16.0); MEAN CORPUSCULAR HEMOGLOBIN 30.3 PG (27.0-31.0); MEAN CORPUSCULAR HGB CONC 34.2 g/dL (33.0-36.5); MEAN CORPUSCULAR VOLUME 88.5 FL (78-98); MEAN PLATELET VOLUME 8.3 FL (7.4-10.4); PLATELET COUNT 259 X10'3 (140-440); RED BLOOD COUNT 2.58 X10'6 (4.20-5.60); RED CELL DISTRIBUTION WIDTH 15.5 % (11.5-14.5); WHITE BLOOD COUNT 8.9 X10'3 (4.5-11.0)
[2024-08-04 03:39] LABS: ALANINE AMINOTRANSFERASE 15 U/L (12-78); ALBUMIN 2.2 G/DL (3.4-5.0); ALBUMIN/GLOBULIN RATIO 0.8 (1.1-1.5); ALKALINE PHOSPHATASE 52 IU/L (46-116); ANION GAP 8 (8-16); ASPARTATE AMINO TRANSFERASE 39 U/L (10-37); BLOOD UREA NITROGEN 34 MG/DL (7-18); BUN/CREATININE RATIO 38.2 (10.0-20.0); CALCIUM 8.1 MG/DL (8.5-10.1); CHLORIDE 103 MMOL/L (99-107); CHOL/HDL RATIO 4.1 (0.00-4.99); CHOLESTEROL 78 MG/DL (0-200); CREATININE 0.89 MG/DL (0.40-0.90); GLUCOSE 96 MG/DL (70-104); HDL CHOLESTEROL 19 MG/DL (35-60); LDL CHOLESTEROL 39 MG/DL (50-100); MAGNESIUM 1.5 MG/DL (1.5-2.4); PHOSPHORUS 3.1 MG/DL (2.3-4.5); POTASSIUM 3.7 MMOL/L (3.5-5.1); SODIUM 137 MMOL/L (135-145); TOTAL CARBON DIOXIDE 25.9 MMOL/L (24-32); TOTAL PROTEIN 4.8 G/DL (6.4-8.2); TRIGLYCERIDES 77 MG/DL (20-135); eCRCL 66 ML/MIN; eGFR 66 ML/MIN
[2024-08-04 07:22] LABS: BASOPHILS % (AUTO) 0.6 % (0-1); EOSINOPHILS # (AUTO) 0.2 X10'3 (0-0.9); EOSINOPHILS % (AUTO) 3.1 % (0-6); HEMATOCRIT 23.6 % (35.0-45.0); LYMPHOCYTES # (AUTO) 1.2 X10'3 (1.1-4.8); LYMPHOCYTES % (AUTO) 16.3 % (21-51); MEAN CORPUSCULAR HEMOGLOBIN 30.5 PG (27.0-31.0); MEAN CORPUSCULAR HGB CONC 34.1 g/dL (33.0-36.5); MEAN CORPUSCULAR VOLUME 89.3 FL (78-98); MEAN PLATELET VOLUME 8.7 FL (7.4-10.4); MONOCYTES % (AUTO) 13.1 % (2-12); NEUTROPHILS % (AUTO) 66.9 % (42-75); PLATELET COUNT 258 X10'3 (140-440); RED BLOOD COUNT 2.64 X10'6 (4.20-5.60); RED CELL DISTRIBUTION WIDTH 15.6 % (11.5-14.5); WHITE BLOOD COUNT 7.5 X10'3 (4.5-11.0)
[2024-08-04 09:40] LABS: HEMATOCRIT 23.9 % (35.0-45.0); HEMOGLOBIN 8.1 g/dl (12.0-16.0); MEAN CORPUSCULAR HEMOGLOBIN 30.2 PG (27.0-31.0); MEAN CORPUSCULAR HGB CONC 33.7 g/dL (33.0-36.5); MEAN CORPUSCULAR VOLUME 89.6 FL (78-98); MEAN PLATELET VOLUME 8.3 FL (7.4-10.4); PLATELET COUNT 274 X10'3 (140-440); RED BLOOD COUNT 2.67 X10'6 (4.20-5.60); RED CELL DISTRIBUTION WIDTH 15.4 % (11.5-14.5); WHITE BLOOD COUNT 8.8 X10'3 (4.5-11.0)
[2024-08-04 14:03] LABS: HEMATOCRIT 22.9 % (35.0-45.0); HEMOGLOBIN 7.6 g/dl (12.0-16.0); MEAN CORPUSCULAR HEMOGLOBIN 29.9 PG (27.0-31.0); MEAN CORPUSCULAR HGB CONC 33.2 g/dL (33.0-36.5); MEAN CORPUSCULAR VOLUME 89.9 FL (78-98); PLATELET COUNT 239 X10'3 (140-440); RED BLOOD COUNT 2.55 X10'6 (4.20-5.60); RED CELL DISTRIBUTION WIDTH 15.4 % (11.5-14.5); WHITE BLOOD COUNT 7.8 X10'3 (4.5-11.0)
[2024-08-04] MEDS ORDERED: LIDOcaine 2% Viscous 15ml cup ONE ×2 (14:58→17:11)
[2024-08-04] MEDS ORDERED: MIDAZolam 1 MG/ML 5ML VIAL ONE (17:11)
[2024-08-04] MEDS ORDERED: fentaNYL/PF 50MCG/1 ML 2ML syringe ONE (17:11)
[2024-08-04] MEDS ORDERED: simethicone 40mg/0.6ml oral drops 30ml ONE (17:28)
--- NOTE | 2024-08-04 18:13 | CONSULTATION ---
DATE OF CONSULTATION: 08/04/2024 DICTATING PHYSICIAN: Giovanni Malone MD REASON FOR CONSULT: Melena and anemia. HISTORY OF PRESENT ILLNESS: The patient is a 54-year-old female with a history of UTI, alcohol-related liver cirrhosis, complicated with esophageal varices, presented with melena and anemia. The patient had esophageal varices banding about a couple of weeks ago, then she took some aspirin. She started to have dark stool and feels weak. She presented to the local ER and transferred here for further evaluation. The patient denies more drinking alcohol. PHYSICAL EXAMINATION: GENERAL: The patient is alert, awake, in no acute distress. HEENT: Sclerae anicteric. NECK: Supple. CARDIOVASCULAR: Regular rate. ABDOMEN: Soft. No guarding or rigidity. LOWER EXTREMITIES: No edema. IMPRESSION AND PLAN: The patient is a 54-year-old female with a history of alcohol-related liver cirrhosis, complicated with esophageal varices, esophageal banding a couple of weeks ago, presented with melena and anemia. Given her presentation, EGD is indicated for further evaluation. Meanwhile, I would recommend to put her on a PPI, octreotide. Watch her hemoglobin closely and transfuse if indicated. Optimize her cardiopulmonary condition. We will plan for EGD. Giovanni Malone MD TID: [id number] RECEIPT: [id number] ERICA/JOSH/JEFF
[2024-08-04 20:03] LABS: HEMATOCRIT 24.3 % (35.0-45.0); MEAN CORPUSCULAR HEMOGLOBIN 29.7 PG (27.0-31.0); MEAN CORPUSCULAR HGB CONC 33.1 g/dL (33.0-36.5); MEAN CORPUSCULAR VOLUME 89.6 FL (78-98); MEAN PLATELET VOLUME 8.1 FL (7.4-10.4); PLATELET COUNT 253 X10'3 (140-440); RED BLOOD COUNT 2.71 X10'6 (4.20-5.60); RED CELL DISTRIBUTION WIDTH 15.5 % (11.5-14.5); WHITE BLOOD COUNT 6.7 X10'3 (4.5-11.0)
[2024-08-04 23:05] LABS: HEMATOCRIT 24.5 % (35.0-45.0); HEMOGLOBIN 8.3 g/dl (12.0-16.0); MEAN CORPUSCULAR HEMOGLOBIN 30.6 PG (27.0-31.0); MEAN CORPUSCULAR VOLUME 89.8 FL (78-98); MEAN PLATELET VOLUME 8.2 FL (7.4-10.4); PLATELET COUNT 285 X10'3 (140-440); RED BLOOD COUNT 2.73 X10'6 (4.20-5.60); RED CELL DISTRIBUTION WIDTH 15.6 % (11.5-14.5); WHITE BLOOD COUNT 7.3 X10'3 (4.5-11.0)
[2024-08-05 02:00] VITALS: BP 124/55; PULSE 103; RESP 16; TEMP 97.6; O2SAT 98
[2024-08-05 03:25] LABS: BASOPHILS % (AUTO) 0.6 % (0-1); EOSINOPHILS # (AUTO) 0.3 X10'3 (0-0.9); EOSINOPHILS % (AUTO) 4.5 % (0-6); HEMATOCRIT 22.6 % (35.0-45.0); HEMOGLOBIN 7.6 g/dl (12.0-16.0); LYMPHOCYTES # (AUTO) 1.3 X10'3 (1.1-4.8); LYMPHOCYTES % (AUTO) 17.9 % (21-51); MEAN CORPUSCULAR HGB CONC 33.5 g/dL (33.0-36.5); MEAN CORPUSCULAR VOLUME 89.5 FL (78-98); MEAN PLATELET VOLUME 8.3 FL (7.4-10.4); MONOCYTES # (AUTO) 0.9 X10'3 (0-0.9); MONOCYTES % (AUTO) 12.7 % (2-12); NEUTROPHILS # (AUTO) 4.7 X10'3 (1.8-7.7); NEUTROPHILS % (AUTO) 64.3 % (42-75); PLATELET COUNT 280 X10'3 (140-440); RED BLOOD COUNT 2.53 X10'6 (4.20-5.60); RED CELL DISTRIBUTION WIDTH 15.8 % (11.5-14.5); WHITE BLOOD COUNT 7.4 X10'3 (4.5-11.0)
[2024-08-05 03:40] LABS: ALANINE AMINOTRANSFERASE 22 U/L (12-78); ALBUMIN 2.2 G/DL (3.4-5.0); ALBUMIN/GLOBULIN RATIO 0.8 (1.1-1.5); ALKALINE PHOSPHATASE 56 IU/L (46-116); ANION GAP 6 (8-16); ASPARTATE AMINO TRANSFERASE 43 U/L (10-37); BILIRUBIN,TOTAL 0.8 MG/DL (0.1-1.0); BLOOD UREA NITROGEN 22 MG/DL (7-18); BUN/CREATININE RATIO 34.4 (10.0-20.0); CALCIUM 7.9 MG/DL (8.5-10.1); CHLORIDE 103 MMOL/L (99-107); CREATININE 0.64 MG/DL (0.40-0.90); GLUCOSE 104 MG/DL (70-104); MAGNESIUM 1.3 MG/DL (1.5-2.4); PHOSPHORUS 3.2 MG/DL (2.3-4.5); SODIUM 134 MMOL/L (135-145); TOTAL CARBON DIOXIDE 24.9 MMOL/L (24-32); TOTAL PROTEIN 4.9 G/DL (6.4-8.2); eCRCL 92 ML/MIN; eGFR > 90 ML/MIN
[2024-08-05 07:14] LABS: HEMATOCRIT 25.6 % (35.0-45.0); HEMOGLOBIN 8.5 g/dl (12.0-16.0); MEAN CORPUSCULAR HGB CONC 33.1 g/dL (33.0-36.5); MEAN CORPUSCULAR VOLUME 90.7 FL (78-98); MEAN PLATELET VOLUME 8.4 FL (7.4-10.4); PLATELET COUNT 270 X10'3 (140-440); RED BLOOD COUNT 2.82 X10'6 (4.20-5.60); RED CELL DISTRIBUTION WIDTH 15.8 % (11.5-14.5)
[2024-08-05 08:00] VITALS: RESP 16; O2SAT 100
[2024-08-05 11:00] VITALS: BP 149/70; PULSE 103; RESP 17; TEMP 97.9; O2SAT 97
[2024-08-05] MEDS: traMADol 50MG tablet PO PRN (15:21)
[2024-08-05 15:29] LABS: HEMATOCRIT 25.9 % (35.0-45.0); HEMOGLOBIN 8.7 g/dl (12.0-16.0); MEAN CORPUSCULAR HEMOGLOBIN 30.1 PG (27.0-31.0); MEAN CORPUSCULAR HGB CONC 33.4 g/dL (33.0-36.5); MEAN PLATELET VOLUME 8.6 FL (7.4-10.4); PLATELET COUNT 252 X10'3 (140-440); RED BLOOD COUNT 2.88 X10'6 (4.20-5.60); RED CELL DISTRIBUTION WIDTH 15.6 % (11.5-14.5); WHITE BLOOD COUNT 7.1 X10'3 (4.5-11.0)
[2024-08-05 18:00] VITALS: BP 131/7; PULSE 99; RESP 16; TEMP 97.8; O2SAT 100
[2024-08-05] MEDS ORDERED: docusate sod 100mg capsule PO PRN (19:30)
[2024-08-05] MEDS ORDERED: sennosides 8.6mg tablet PO PRN (19:30)
[2024-08-05] MEDS ORDERED: oxyCODONE IR 5mg (immed. release) tablet PO PRN (19:30)
--- NOTE | 2024-08-05 19:32 | PROGRESS NOTE ---
Daily Progress Note Providers to CC ~ Antibiotic Timeout Antibiotic Ordered?: No Subjective Patient complaining of some abdominal distention; no more melena or hematemesis Objective Vital Signs Date Time Temp Pulse Resp B/P (MAP) Pulse Ox O2 Delivery O2 Flow Rate FiO2 08/05/24 15:38 Room Air 08/05/24 15:21 18 08/05/24 11:00 97.9 103 149/70 (96) 97 08/04/24 17:34 3.0 Result Diagram: 08/05/24 1516 08/05/24 0313 In bed in nonacute distress HEENT normal oral mucosa no JVD Lungs with normal bilateral entry no crackles Heart normal rate and rhythm S1-S2 Abdomen is soft mild distended nontender bowel sounds are present Extremities no edema plus two pulses Awake and alert and oriented sensory intact Coagulation Studies Laboratory Tests Test 08/02/24 23:18 Prothrombin Time 14.6 SECONDS (9.0-12.0) H INR International Normalized Ratio 1.5 INR Activated Partial Thromboplast Time 29 SECONDS (22-32) Coagulation Comments Problem\Assessment\Plan Patient presented with hematemesis and GI bleed; initially treated with Protonix drip and octreotide drip due to her history as cirrhosis; had EGD which showed presence of esophageal ulcers with no evidence of bleeding; switch patient to Protonix 40 p.o. b.i.d. and DC octreotide drip Acute anemia sick blood loss secondary to GI bleed; monitoring hemoglobin patient did not require blood transfusion History of cirrhosis Portal gastropathy Chronic hand pain for which patient was taking aspirin at home; try tramadol Hypothyroidism on supplementation History of depression on sertraline Date of Service: August 05, 2024 Billing Provider: MADELYN HERNANDEZ MD Common Visit Codes: [id number] INP/OBS CARE(HIGH) MADELYN HERNANDEZ MD August 05, 2024 19:32
[2024-08-05 19:39] LABS: HEMATOCRIT 22.6 % (35.0-45.0); HEMOGLOBIN 7.5 g/dl (12.0-16.0); MEAN CORPUSCULAR HEMOGLOBIN 29.9 PG (27.0-31.0); MEAN CORPUSCULAR HGB CONC 33.2 g/dL (33.0-36.5); MEAN CORPUSCULAR VOLUME 89.9 FL (78-98); MEAN PLATELET VOLUME 8.6 FL (7.4-10.4); PLATELET COUNT 265 X10'3 (140-440); RED BLOOD COUNT 2.52 X10'6 (4.20-5.60); RED CELL DISTRIBUTION WIDTH 15.8 % (11.5-14.5); WHITE BLOOD COUNT 5.9 X10'3 (4.5-11.0)
[2024-08-05 20:00] VITALS: RESP 16; O2SAT 100
[2024-08-05] MEDS: pantoprazole 40mg Tablet.DR PO SCH (20:12)
[2024-08-05] MEDS: calcium carbonate 500mg tablet PO SCH (20:13)
[2024-08-05 22:00] VITALS: BP 143/84; PULSE 107; RESP 16; TEMP 96.9; O2SAT 99
[2024-08-05 23:35] LABS: HEMATOCRIT 23.5 % (35.0-45.0); MEAN CORPUSCULAR HEMOGLOBIN 30.4 PG (27.0-31.0); MEAN CORPUSCULAR VOLUME 89.6 FL (78-98); MEAN PLATELET VOLUME 8.2 FL (7.4-10.4); PLATELET COUNT 248 X10'3 (140-440); RED BLOOD COUNT 2.62 X10'6 (4.20-5.60); RED CELL DISTRIBUTION WIDTH 15.9 % (11.5-14.5); WHITE BLOOD COUNT 7.1 X10'3 (4.5-11.0)
[2024-08-06 06:43] VITALS: BP 113/56; PULSE 103; RESP 18; TEMP 97.2; O2SAT 93
[2024-08-06 07:20] LABS: BASOPHILS # (AUTO) 0.1 X10'3 (0-0.2); BASOPHILS % (AUTO) 1.3 % (0-1); EOSINOPHILS # (AUTO) 0.2 X10'3 (0-0.9); EOSINOPHILS % (AUTO) 2.4 % (0-6); HEMATOCRIT 24.7 % (35.0-45.0); HEMOGLOBIN 8.2 g/dl (12.0-16.0); LYMPHOCYTES # (AUTO) 1.1 X10'3 (1.1-4.8); LYMPHOCYTES % (AUTO) 15.8 % (21-51); MEAN CORPUSCULAR HEMOGLOBIN 29.7 PG (27.0-31.0); MEAN CORPUSCULAR HGB CONC 33.1 g/dL (33.0-36.5); MEAN CORPUSCULAR VOLUME 89.6 FL (78-98); MEAN PLATELET VOLUME 8.8 FL (7.4-10.4); MONOCYTES # (AUTO) 1.1 X10'3 (0-0.9); MONOCYTES % (AUTO) 15.1 % (2-12); NEUTROPHILS # (AUTO) 4.6 X10'3 (1.8-7.7); NEUTROPHILS % (AUTO) 65.4 % (42-75); PLATELET COUNT 228 X10'3 (140-440); RED BLOOD COUNT 2.75 X10'6 (4.20-5.60); RED CELL DISTRIBUTION WIDTH 16.1 % (11.5-14.5); WHITE BLOOD COUNT 7.1 X10'3 (4.5-11.0)
[2024-08-06 07:27] LABS: ALANINE AMINOTRANSFERASE 19 U/L (12-78); ALBUMIN 2.2 G/DL (3.4-5.0); ALBUMIN/GLOBULIN RATIO 0.7 (1.1-1.5); ALKALINE PHOSPHATASE 55 IU/L (46-116); ANION GAP 9 (8-16); ASPARTATE AMINO TRANSFERASE 43 U/L (10-37); BILIRUBIN,TOTAL 0.8 MG/DL (0.1-1.0); BLOOD UREA NITROGEN 15 MG/DL (7-18); BUN/CREATININE RATIO 25.4 (10.0-20.0); CALCIUM 8.1 MG/DL (8.5-10.1); CHLORIDE 102 MMOL/L (99-107); CREATININE 0.59 MG/DL (0.40-0.90); GLUCOSE 99 MG/DL (70-104); MAGNESIUM 1.3 MG/DL (1.5-2.4); PHOSPHORUS 2.9 MG/DL (2.3-4.5); POTASSIUM 5.2 MMOL/L (3.5-5.1); SODIUM 131 MMOL/L (135-145); TOTAL CARBON DIOXIDE 20.1 MMOL/L (24-32); TOTAL PROTEIN 5.3 G/DL (6.4-8.2); eCRCL 100 ML/MIN; eGFR > 90 ML/MIN
[2024-08-06 08:20] VITALS: RESP 17; O2SAT 93
[2024-08-06] MEDS: levoTHYROXINE 100mcg tablet PO SCH (08:29)
[2024-08-06] MEDS: sertraline 50mg tablet PO SCH (08:29)
[2024-08-06] MEDS: folic acid 0.4mg tablet PO SCH (08:30)
[2024-08-06] MEDS ORDERED: LACT-373 PO (09:01)
[2024-08-06] MEDS ORDERED: FURO40TA4 PO (09:01)
[2024-08-06] MEDS ORDERED: SPIR25TA5 PO (11:34)
--- NOTE | 2024-08-07 07:35 | PROGRESS NOTE ---
Daily Progress Note Providers to CC ~ Antibiotic Timeout Antibiotic Ordered?: Yes Subjective Complaining of some abdominal distension, no hematemesis or melena Objective Vital Signs Date Time Temp Pulse Resp B/P (MAP) Pulse Ox O2 Delivery O2 Flow Rate FiO2 08/06/24 08:20 17 93 Room Air 3.0 08/06/24 06:43 97.2 103 113/56 (75) Result Diagram: 08/06/24 0600 08/06/24 0600 In bed in nonacute distress HEENT normal oral mucosa no JVD Lungs with normal bilateral entry no crackles Heart normal rate and rhythm S1-S2 Abdomen is soft mild distended nontender bowel sounds are present Extremities no edema plus two pulses Awake and alert and oriented sensory intact Coagulation Studies Laboratory Tests Test 08/02/24 23:18 Prothrombin Time 14.6 SECONDS (9.0-12.0) H INR International Normalized Ratio 1.5 INR Activated Partial Thromboplast Time 29 SECONDS (22-32) Coagulation Comments Problem\Assessment\Plan Patient presented with hematemesis and GI bleed; on Protonix drip and octreotide drip due to her history as cirrhosis; GI contacted for EGD Acute anemia secondary blood loss secondary to GI bleed; monitoring hemoglobin History of cirrhosis Chronic hand pain for which patient was taking aspirin at home Hypothyroidism on supplementation History of depression on sertraline Date of Service: August 04, 2024 Billing Provider: MADELYN HERNANDEZ MD Common Visit Codes: [id number] INP/OBS CARE(HIGH) MADELYN HERNANDEZ MD August 07, 2024 07:35
--- NOTE | 2024-08-07 07:45 | DISCHARGE SUMMARY ---
Discharge Summary Providers to CC ~ Discharge Summary Admission Diagnosis: UPPER GI BLEED Hospital Course DATE OF ADMISSION: 08/03/2024 DATE OF DISCHARGE: Aug 06 2024 Discharge Diagnosis\Comment: Upper GI bleed likely related to esophageal ulcers secondary to likely use of NSAIDs Portal gastropathy Acute anemia secondary to blood loss secondary to GI bleed status post 2 units of PRBCs transfusion History of cirrhosis decompensated with ascites Chronic hand pain Hypothyroidism History of depression Operations\Procedures: EGD Consultants: Dr. Malone GI Complications: None Condition on DC: Stable Discharge Summary: This is a 54 years old female with a known history of liver cirrhosis with presents to the hospital after episode of hematemesis followed by melena; she presented to [facility] and she was transfused 2 units of PRBCs at the facility; patient was admitted to our facility on Protonix drip and octreotide drip; GI was consulted and patient had EGD with Dr. Malone which showed presence of portal gastropathy and small esophageal ulcers with no stigmata of bleeding; since admission to our facility patient did not require more blood transfusion her hemoglobin remained stable; likely cause of her esophageal ulcers was the use of aspirin for her hand pain; patient is strongly advised against use of any N SAIDs; patient condition remained stable and on the day of discharge patient was discharged home to follow up with her primary care physician within a week Patient received on discharge prescription for Lasix 40 mg p.o. daily lactulose 30 mL p.o. q.12 hours spironolactone 100 mg p.o. daily; patient to resume her Os-William 500 mg p.o. b.i.d. folic acid 1 mg p.o. daily levothyroxine 100 mcg p.o. daily Oxy IR 5 mg p.o. q.6 hours Protonix 40 mg p.o. b.i.d. and sertraline 50 mg p.o. daily On the day of discharge hemoglobin 8.2 hematocrit 24 with 228 platelets and a white count of 7.1; sodium 131 potassium 5.2 CO2 20 BUN 15 and creatinine 0.6 In the physical examination temperature 97.2 heart rate 100 breathing 18 blood pressure 113/56 93% on room air HEENT normal oral mucosa no JVD lungs with normal bilateral entry no crackles no wheezing heart normal rate and rhythm S1- S2 no murmurs abdomen is soft mild distended nontender bowel sounds are present extremities no edema plus two pulses she is awake and alert; patient is scheduled for outpatient paracentesis this coming Thursday *Problems/Diagnosis: (1) Upper gastrointestinal bleeding Status: Acute Total Time Spent on D/C: > 30 Minutes Date of Service: August 06, 2024 Billing Provider: MADELYN HERNANDEZ MD Common Visit Codes: [id number] DISCH DAY >30min MADELYN HERNANDEZ MD August 07, 2024 07:42
== END 2024-08-06 13:25 | disposition home or self-care (01) | DRG 242 ==
LOC: ER 22:55 → ED HOLD 08-03 00:34 → EDBEDREQ 08-03 01:49 → PCU 3S 08-03 02:27 → ORTHO 4S 08-05 14:50
PROVIDERS: ADMIT Internal Medicine Pulmonary Disease; ATTEND Internal Medicine
PROC: 0DJ08ZZ Inspection of Upper Intestinal Tract, Via Natural or Artificial Opening Endoscopic (ICD-10-PCS; principal; 2024-08-04)
DX: K22.11 Ulcer of esophagus with bleeding (principal); K76.6 Portal hypertension; D62 Acute posthemorrhagic anemia; E87.8 Other disorders of electrolyte and fluid balance, not elsewhere classified; E87.1 Hypo-osmolality and hyponatremia; K74.60 Unspecified cirrhosis of liver; K31.89 Other diseases of stomach and duodenum; E03.9 Hypothyroidism, unspecified; F32.A Depression, unspecified; T39.395A Adverse effect of other nonsteroidal anti-inflammatory drugs [NSAID], initial encounter; G89.29 Other chronic pain; K44.9 Diaphragmatic hernia without obstruction or gangrene; Z79.899 Other long term (current) drug therapy; Z88.8 Allergy status to other drugs, medicaments and biological substances; Z82.49 Family history of ischemic heart disease and other diseases of the circulatory system; Y92.89 Other specified places as the place of occurrence of the external cause; Z87.440 Personal history of urinary (tract) infections; R16.1 Splenomegaly, not elsewhere classified
CPT/HCPCS: 36415; 43235; 70450; 80048; 80053; 80061; 81001; 82140; 83036; 83735; 84100; 85025; 85027; 85610; 85730; 86885; 86900; 86901; 87040; 87081; 93005; 99152; 99291; A4649; A6212; A6213; A6222; A6223; A6253; A6258; A6260; A6446; A6449; G0378; J0696; J1171; J2250; J2270; J2354; J2470; J3010; J7030; J7040